=== PATIENT | male | born 1995 | race African-American/Black ===

== ENCOUNTER 2017-04-09 19:23 | Inpatient (IN) | payer OTHER ==
[~2017-04-09] VITALS: Ht 190.5 cm; Wt 77.1 kg
--- NOTE | 2017-04-09 19:50 | NUR ---
PT A/OX4 BREATHING EFFORTLESSLY ON ROOM AIR, PT STATES HE WAS AT [facility] [place] TODAY [facility] DIAGNOSED HIM WITH LEUKOPENIA, AND HEMOPTYSIS, PT STATES HE HAS BEEN COUGHING FOR 3 WEEKS AND SINCE THIS MORNING PT STATES HE HAS BEEN COUGHING UP BLOOD, PT ON MONITOR, IN JARODWMD Naz MADE AWARE WILL CONTINUE TO MONITOR.
[2017-04-09] MEDS ORDERED: IV NS 0.9% 1,000 ML BAG IV ONE (20:30)
[2017-04-09 20:51] LABS: CALCIUM, SERUM 8.6 mg/dL (8.5-10.1); CREATININE 0.9 mg/dL (0.6-1.3); POTASSIUM 3.5 mmol/L (3.5-5.1)
[2017-04-09 20:58] LABS: EOSINOPHILS % (AUTO) 0.2 % (0.0-6.0); HEMOGLOBIN 13.8 g/dL (13.5-17.5); LYMPHOCYTES # (AUTO) 0.4 /CMM (0.8-4.8); LYMPHOCYTES % (AUTO) 25.1 % (20.0-44.0); MEAN CORPUSCULAR HEMOGLOBIN 28 PG (26.0-33.0); MONOCYTES # (AUTO) 0.2 /CMM (0.1-1.30); NEUTROPHILS % (AUTO) 60.1 % (43.0-81.0)
[2017-04-09 20:59] LABS: HEMATOCRIT 43 % (39-51); MEAN CORPUSCULAR HGB CONC 32 g/dl (31.0-36.0); MEAN CORPUSCULAR VOLUME 87 fL (80-96); RDW COEFFICIENT OF VARIATION 13.4 (11.5-15.0); RED BLOOD CELL COUNT(AUTO) 4.95 MIL/uL (4.5-6.0)
[2017-04-09 21:00] LABS: BASOPHILS % (AUTO) 0.2 % (0.0-2.0); MONOCYTES % (AUTO) 14.7 % (2.0-12.0); PLATELET COUNT (AUTO) 64 /CMM (150-450)
[2017-04-09 21:01] LABS: WHITE BLOOD COUNT (AUTO) 1.6 K/uL (4.3-11.0)
[2017-04-09 21:39] LABS: BAND % (MANUAL) 8 % (0.0-5.0); LYMPHOCYTES % (MANUAL) 26 % (16-48); MONOCYTES % (MANUAL) 6 % (0-11.0); NEUTROPHILS % (MANUAL) 60 (42-76)
--- NOTE | 2017-04-09 22:37 | NUR ---
TELE 306-9
[2017-04-09 23:10] VITALS: BP 154/69
[2017-04-09 23:15] VITALS: BP 125/70
--- NOTE | 2017-04-09 23:15 | NUR ---
TELE/RN NOTES NEW ADMITTED PATIENT IS A 22 YO MALE, ALERT, ORIENTED X4, ABLE TO VERBALIZE NEEDS, CALM AND COOPERATIVE TO CARE. AMBULATES AND RESPIRATIONS EVEN AND UNLABORED, SKIN INTACT AND DRY. DENIES PAIN. VERBALIZED HAD BLOODY THICK SPUTUM, TELE READING NSR AT 73. ROOM ORIENTATION PROVIDED, BELONGINGS CHECKED AND INVENTORIED. IV ON RFA GAUGE 20,W/ NO S/S OF INFILTRATION. MD PEREZ REVIEWED MEDICATION ORDER. CALL LIGHTS WITHIN REACH, BED IN LOCK POSITION. PROVIDE FLUIDS. WILL CONTINUE TO MONITOR.
[2017-04-09] MEDS ORDERED: ONDANSETRON HCL/PF 4 MG/2 ML VIAL IVP PRN (23:30)
[2017-04-09] MEDS ORDERED: MAG HYDROX/AL HYDROX/SIMETH 30 ML UDC PO PRN (23:30)
[2017-04-09] MEDS: CEFTRIAXONE 2 G in IV D5W 100 ML IV SCH (23:30)
[2017-04-09] MEDS ORDERED: ACETAMINOPHEN 325 MG TABLET PO PRN (23:30)
[2017-04-09] MEDS ORDERED: Z GUARD REMEDY 2 OZ OINT TP PRN (23:30)
[2017-04-09] MEDS ORDERED: ZOLPIDEM TARTRATE 5 MG TABLET PO PRN (23:30)
[2017-04-09] MEDS ORDERED: VANCOMYCIN 1 GM in IV D5W 250 ML IV ONE (23:30)
[2017-04-09] MEDS ORDERED: HYDROCODONE/APAP 5/325MG 1 EACH TABLET PO PRN (23:30)
[2017-04-09] MEDS ORDERED: MAGNESIUM HYDROXIDE 30 ML UDC PO PRN (23:30)
[2017-04-09] MEDS: FLUCONAZOLE IN NS 100 MG in PREMIX 1 EA IV SCH ×2 (23:30)
[2017-04-10] MEDS: IV NS 0.9% 1,000 ML IV PRN ×2 (00:21→15:20)
[2017-04-10] MEDS ORDERED: VANCOMYCIN 1 GM VIAL ONE (00:44)
[2017-04-10] MEDS ORDERED: CEFTRIAXONE 1 G VIAL ONE (00:45)
[2017-04-10] MEDS ORDERED: FLUCONAZOLE IN NS 100 ML IV ONE (01:29)
[2017-04-10] MEDS ORDERED: CEFTRIAXONE 2 G VIAL ONE (01:30)
--- NOTE | 2017-04-10 01:51 | NUR ---
tele/rn notes received from cn iv atb available fluconazole in 200mg in 100ml only and charge nurse made aware. To administer only 50ml .
[2017-04-10 04:00] VITALS: BP 111/56
[2017-04-10] MEDS ORDERED: ACETAMINOPHEN 325 MG TABLET ONE (04:11)
[2017-04-10] MEDS ORDERED: FEE PK DOSING 1 MIN EA MC ONE (06:41)
--- NOTE | 2017-04-10 06:41 | NUR ---
306-1 TELE/RN CLOSING NOTES PATIENT IN BED, MONITORED FOR ANY DISCOMFORT, OBSERVE COUGHING OUT BLOOD, RESPIRATION EVEN AND UNLABORED, TEMPERATURE AT 99.2DEG F ADMINISTERED TYLENOL 650MG, IV ATB GIVEN PER MD ORDER, ABLE TO AMBULATE W/ SUPERVISION TO BATHROOM. SKIN INTACT. WILL ENDORSE TO AM RN FOR SHILPA.CALL LIGHTS WITHIN REACH.TELE READING AT SR IN THE 70'S.
[2017-04-10 07:54] LABS: ALBUMIN 2.7 g/dL (3.4-5.0); BILIRUBIN,TOTAL 0.1 mg/dL (0.2-1.0); CALCIUM, SERUM 8.5 mg/dL (8.5-10.1); CREATININE 0.9 mg/dL (0.6-1.3); MAGNESIUM 1.7 mg/dL (1.8-2.4); PHOSPHORUS 2.5 mg/dL (2.5-4.9); POTASSIUM 3.8 mmol/L (3.5-5.1)
[2017-04-10 07:55] LABS: BASOPHILS % (AUTO) 0.1 % (0.0-2.0); HEMATOCRIT 37 % (39-51); HEMOGLOBIN 12.4 g/dL (13.5-17.5); LYMPHOCYTES # (AUTO) 0.5 /CMM (0.8-4.8); LYMPHOCYTES % (AUTO) 32.4 % (20.0-44.0); MEAN CORPUSCULAR HEMOGLOBIN 30 PG (26.0-33.0); MEAN CORPUSCULAR HGB CONC 34 g/dl (31.0-36.0); MEAN CORPUSCULAR VOLUME 87 fL (80-96); MONOCYTES # (AUTO) 0.2 /CMM (0.1-1.30); MONOCYTES % (AUTO) 11.4 % (2.0-12.0); NEUTROPHILS # (AUTO) 0.8 /CMM (1.8-8.9); NEUTROPHILS % (AUTO) 56.1 % (43.0-81.0); PLATELET COUNT (AUTO) 76 /CMM (150-450); RDW COEFFICIENT OF VARIATION 14.3 (11.5-15.0); RED BLOOD CELL COUNT(AUTO) 4.18 MIL/uL (4.5-6.0)
[2017-04-10 08:00] VITALS: BP 108/65
[2017-04-10 08:01] LABS: WHITE BLOOD COUNT (AUTO) 1.5 K/uL (4.3-11.0)
[2017-04-10 08:27] LABS: THYROID STIMULATING HORMONE 1.124 uIU/mL (0.358-3.74)
[2017-04-10] MEDS: VANCOMYCIN 1.25 GM in IV D5W 500 ML IV SCH ×2 (08:40→17:23)
[2017-04-10 08:59] LABS: BAND % (MANUAL) 1 % (0.0-5.0); LYMPHOCYTES % (MANUAL) 29 % (16-48); MONOCYTES % (MANUAL) 13 % (0-11.0); NEUTROPHILS % (MANUAL) 57 (42-76)
[2017-04-10] MEDS: Magnesium 1GM/D5W 100ML PREMIX 100 ML IV SCH ×2 (10:40→11:47)
[2017-04-10 12:46] LABS: HEMATOCRIT 36 % (39-51); LYMPHOCYTES # (AUTO) 0.5 /CMM (0.8-4.8); LYMPHOCYTES % (AUTO) 32.3 % (20.0-44.0); MEAN CORPUSCULAR HEMOGLOBIN 29 PG (26.0-33.0); MEAN CORPUSCULAR HGB CONC 34 g/dl (31.0-36.0); MEAN CORPUSCULAR VOLUME 88 fL (80-96); MONOCYTES # (AUTO) 0.3 /CMM (0.1-1.30); MONOCYTES % (AUTO) 16.8 % (2.0-12.0); NEUTROPHILS # (AUTO) 0.8 /CMM (1.8-8.9); NEUTROPHILS % (AUTO) 49.9 % (43.0-81.0); PLATELET COUNT (AUTO) 73 /CMM (150-450); RDW COEFFICIENT OF VARIATION 14.4 (11.5-15.0); RED BLOOD CELL COUNT(AUTO) 4.09 MIL/uL (4.5-6.0)
[2017-04-10 12:52] LABS: WHITE BLOOD COUNT (AUTO) 1.6 K/uL (4.3-11.0)
[2017-04-10 13:17] LABS: LYMPHOCYTES % (MANUAL) 31 % (16-48); MONOCYTES % (MANUAL) 15 % (0-11.0); NEUTROPHILS % (MANUAL) 54 (42-76)
[2017-04-10] MEDS ORDERED: TUBERCULIN,PURIF.PROT.DERIV. 5 TU/0.1 ML VIAL ID ONE (16:30)
[2017-04-10 16:59] LABS: D-DIMER 0.23 mg/L(FEU (0.17-0.50); INR 0.93 (0.87-1.13); PROTHROMBIN TIME 9.7 SECS (9.5-12.7)
--- NOTE | 2017-04-10 17:22 | NUR ---
patient lives at home with his brother. He is ambulatory and independent with adl's. Plan is to return home when discharge. Addendum: 04/10/17 at 1722 by RACHEL BUNN RN Amended: Links added.
--- NOTE | 2017-04-10 17:45 | NUR ---
MST/RN - Notes Patient is alert and oriented throughout the shift, not in any form of distress, remain afebrile, denies pain, had an episode of epistaxis, still coughing out blood. Seen by Dr. Mustafa (Hem/Onc) for pancytopenia, thrombocytopenia, and hemoptysis. PPD administered on the LFA, documented accordingly. Neutropenic precautions observed at all times. Continue with IVF NS @ 125 ml/hr to maintain hydration. Await ID consult (Dr. Martinez). Will continue with current medical management.
--- NOTE | 2017-04-10 19:46 | NUR ---
MS RN OPENING NOTES RECEIVED PATIENT RESTING IN BED, A & O X 4. NO SOB, NO S/S OF BLEEDING, NO COUGH, RESP EVEN & NON LABORED AT THIS TIME. STATED HE IS FEELING BETTER THAN BEFORE NOW. CONTINENT, BRP. IV ACCESS TO RFA RUNNING WITH NS @ 125ML/HR, INTACT PATENT. BROTHER AT BED SIDE. BED IN LOW LOCKED POSITION. NEUTROPENIC PRECAUTIONS IN PLACE. CALL LIGHT WITHIN REACH. WILL OBSERVE CLOSELY.
[2017-04-10 20:00] VITALS: BP 108/52
--- NOTE | 2017-04-10 20:10 | NUR ---
PATIENT SEEN BY LOADER UNLOADER SERGEI SOARES OF DR. CUELLO VISITED THE PATIENT WITH NEW ORDERS. NOTED & CARRIED OUT.
[2017-04-10] MEDS: FLUCONAZOLE IN NS 100 MG in PREMIX 1 EA IV SCH ×2 (22:33)
[2017-04-10 23:30] VITALS: BP 111/60
[2017-04-10] MEDS: CEFTRIAXONE 2 G in IV D5W 100 ML IV SCH (23:39)
[2017-04-11] MEDS: VANCOMYCIN 1.25 GM in IV D5W 500 ML IV SCH ×3 (00:58→17:00)
--- NOTE | 2017-04-11 02:25 | NUR ---
MS RN NOTES PATIENT SLEEPING INTERMITTENTLY. CONTINENT & BRP. NO C/O PAIN, NO FEVER NOTED. PATIENT VERBALIZED FEELING BETTER AT THIS TIME. INFORMED TO NOTIFY THE NURSE IF ANY CHANGES NOTED. PT VERBALIZED UNDERSTANDING.
[2017-04-11] MEDS: IV NS 0.9% 1,000 ML IV PRN (05:50)
--- NOTE | 2017-04-11 06:43 | NUR ---
MS RN CLOSING NOTES PATIENT SLEPT INTERMITTENTLY. NO C/O PAIN, NO DISTRESS/DISCOMFORT NOTED. AFEBRILE, 97.5 F. ALL ANTIBIOTICS GIVEN ORDERED. IV ACCESS TO LFA, RUNNING WITH NS @ 125ML/HR, INTACT PATENT. NEUTROPENIA & SAFETY PRECAUTIONS IN PLACE. TOLERATES PO INTAKE WELL. OBSERVED CLOSELY FOR SAFETY & COMFORT. NO HEMOPTYSIS OR EPISTAXIS NOTED. ALL NEEDS MET. BED IN LOW LOCKED POSITION. CALL LIGHT WITHIN REACH. WILL ENDORSE TO AM RN FOR CONTINUITY OF CARE.
[2017-04-11 06:48] LABS: EOSINOPHILS % (AUTO) 0.2 % (0.0-6.0); HEMATOCRIT 39 % (39-51); LYMPHOCYTES % (AUTO) 50.9 % (20.0-44.0); MEAN CORPUSCULAR HEMOGLOBIN 29 PG (26.0-33.0); MEAN CORPUSCULAR HGB CONC 33 g/dl (31.0-36.0); MEAN CORPUSCULAR VOLUME 88 fL (80-96); MONOCYTES # (AUTO) 0.3 /CMM (0.1-1.30); MONOCYTES % (AUTO) 16.6 % (2.0-12.0); NEUTROPHILS # (AUTO) 0.6 /CMM (1.8-8.9); NEUTROPHILS % (AUTO) 31.3 % (43.0-81.0); PLATELET COUNT (AUTO) 87 /CMM (150-450); RDW COEFFICIENT OF VARIATION 14.6 (11.5-15.0); RED BLOOD CELL COUNT(AUTO) 4.49 MIL/uL (4.5-6.0)
[2017-04-11 07:11] LABS: CALCIUM, SERUM 8.8 mg/dL (8.5-10.1); CREATININE 0.8 mg/dL (0.6-1.3); MAGNESIUM 1.9 mg/dL (1.8-2.4); PHOSPHORUS 3.2 mg/dL (2.5-4.9); POTASSIUM 4.1 mmol/L (3.5-5.1)
[2017-04-11 08:00] VITALS: BP 112/52
[2017-04-11 08:10] LABS: C-REACTIVE PROTEIN, QUANT 1.4 mg/L (0.0-4.9)
--- NOTE | 2017-04-11 08:30 | NUR ---
MS RN RECEIVED ON BED, AWAKE,ALERT,ORIENTED X4,NOT IN ANY FORM OF DISTRESS, RESPIRATIONS EVEN AND UNLABORED,NO SOB NOTED, LUNGS ARE CLEAR,ABDOMEN SOFT, POSITIVE BOWEL SOUNDS, DENIES PAIN AT THIS TIME, WILL MONITOR PATIENT'S CONDITION.
--- NOTE | 2017-04-11 09:00 | NUR ---
MS TIM BREAKFAST SERVED,DUE MEDS GIVEN,TOLERATED WELL.
[2017-04-11 09:05] LABS: LYMPHOCYTES % (MANUAL) 53 % (16-48); MONOCYTES % (MANUAL) 22 % (0-11.0); NEUTROPHILS % (MANUAL) 25 (42-76)
--- NOTE | 2017-04-11 13:00 | NUR ---
ms rn was seen by tesfaye, was able to speak w/ mother.
[2017-04-11 16:00] VITALS: BP 106/49
--- NOTE | 2017-04-11 17:20 | NUR ---
ms rn was seen by georges gann/ order made and carried out.
--- NOTE | 2017-04-11 18:26 | NUR ---
ms rn on bed, no distress noted.
--- NOTE | 2017-04-11 19:30 | NUR ---
RN NOTES PATIENT IS IN BED, ALERT AND ORIENTED X4. VS STABLE. FAMILY PRESENT AT BEDSIDE. NO C/O PAIN AT THIS TIME. RESPIRATIONS EVEN AND UNLABORED. NO SOB NOTED. IV ACCESS ON RIGHT FA PATENT AND INTACT. NO REDNESS OR INFILTRATION NOTED. BED IN LOW POSITION. SIDE RAILS X2. CALL LIGHT WITHIN EASY REACH. WILL CONTINUE TO MONITOR.
[2017-04-11 20:00] VITALS: BP 115/59
[2017-04-11 20:14] VITALS: BP 115/59
[2017-04-11] MEDS: CEFTRIAXONE 2 G in IV D5W 100 ML IV SCH (22:50)
[2017-04-12] MEDS: FLUCONAZOLE IN NS 100 MG in PREMIX 1 EA IV SCH ×2 (00:40)
[2017-04-12] MEDS: VANCOMYCIN 1 GM in IV D5W 250 ML IV SCH ×3 (00:48→18:34)
--- NOTE | 2017-04-12 00:49 | NUR ---
RN NOTES VANCOMYCIN NOT ADMINISTERED. VANCO TROUGH 23.
--- NOTE | 2017-04-12 06:55 | NUR ---
RN CLOSING NOTES PATIENT IS SLEEPING IN BED. VS STABLE. RESPIRATIONS EVEN AND UNLABORED. NO SOB NOTED. IV ACCESS ON RIGHT FA PATENT AND INTACT. INFUSING NS AT 125 ML/HR. NO REDNESS OR INFILTRATION NOTED. ALL MEDICATIONS GIVEN PER MD ORDER. BED IN LOW POSITION. SIDE RAILS X2. CALL LIGHT WITHIN EASY REACH. WILL ENDORSE TO RN DAY SHIFT FOR CONTINUITY OF CARE.
--- NOTE | 2017-04-12 07:20 | NUR ---
MS RN OPENING NOTES RECEIVED PT FROM NIGHTSHIFT NURSE IN STABLE CONDITION. PT IS A/O X4. NO SOB OR SIGNS OF DISTRESS NOTED. BREATHING IS EVEN N UNLABORED. PT DENIES ANY PAIN AT THIS TIME. NO REPORTS OF FEVERS OR CHILLS. NO EPISODES OF HEMOPTYSIS NOTED. IV PRESENT ON RIGHT FOREARM WITH NS @ 125ML.HR. PT IS TOLERATING IN FUSION WELL. NO REDNESS OR SIGNS OF INFILTRATION NOTED. BED IN LOW LOCKED POSITION, SIDE RAILS UP X2, CALL LIGHT WITHIN REACH. PT'S MOTHER NOY AT BEDSIDE. WILL CONTINUE TO MONITOR.
[2017-04-12 07:39] LABS: BASOPHILS % (AUTO) 0.8 % (0.0-2.0); EOSINOPHILS % (AUTO) 0.8 % (0.0-6.0); HEMATOCRIT 36 % (39-51); HEMOGLOBIN 12.2 g/dL (13.5-17.5); LYMPHOCYTES # (AUTO) 1.2 /CMM (0.8-4.8); LYMPHOCYTES % (AUTO) 53.8 % (20.0-44.0); MEAN CORPUSCULAR HEMOGLOBIN 30 PG (26.0-33.0); MEAN CORPUSCULAR HGB CONC 34 g/dl (31.0-36.0); MEAN CORPUSCULAR VOLUME 87 fL (80-96); MONOCYTES # (AUTO) 0.4 /CMM (0.1-1.30); MONOCYTES % (AUTO) 16.8 % (2.0-12.0); NEUTROPHILS # (AUTO) 0.6 /CMM (1.8-8.9); NEUTROPHILS % (AUTO) 27.8 % (43.0-81.0); PLATELET COUNT (AUTO) 85 /CMM (150-450); RDW COEFFICIENT OF VARIATION 14.2 (11.5-15.0); RED BLOOD CELL COUNT(AUTO) 4.13 MIL/uL (4.5-6.0); WHITE BLOOD COUNT (AUTO) 2.1 K/uL (4.3-11.0)
[2017-04-12 08:00] VITALS: BP 108/54
[2017-04-12 08:01] LABS: CALCIUM, SERUM 8.6 mg/dL (8.5-10.1); CREATININE 0.7 mg/dL (0.6-1.3); MAGNESIUM 1.9 mg/dL (1.8-2.4); PHOSPHORUS 3.3 mg/dL (2.5-4.9); POTASSIUM 4.2 mmol/L (3.5-5.1)
[2017-04-12 09:39] LABS: LYMPHOCYTES % (MANUAL) 53 % (16-48); MONOCYTES % (MANUAL) 16 % (0-11.0); NEUTROPHILS % (MANUAL) 27 (42-76); REACTIVE LYMPHOCYTES 4 % (0-0)
--- NOTE | 2017-04-12 09:57 | NUR ---
MS RN NOTES LAB CALLED TO REPORT THAT THE PT'S ABSOLUTE NEUTROPHIL COUNT IS 0.4. DR. MENDOZA THE HVAC RESIDENTIAL SERVICE TECHNICIAN WAS NOTIFIED AND STATED THAT SHE WILL START THE PT. ON NEUPOGEN
[2017-04-12 10:12] LABS: *BASOS 1 % (Not Estab.); *COMMENTS Note: (.); *EOS 0 % (Not Estab.); *HCT 40.5 % (37.5-51.0); *HGB 12.9 g/dL (12.6-17.7); *LYMPHOCYTES 59 % (Not Estab.); *MCH 28.5 pg (26.6-33.0); *MCHC 31.9 g/dL (31.5-35.7); *MCV 89 fL (79-97); *MONOCYTES 15 % (Not Estab.); *MONOS, ABSOLUTE 0.3 x10E3/uL (0.1-0.9); *NEUTROPHILS 25 % (Not Estab.); *NRBC 1 % (0 - 0); *PLT 94 x10E3/uL (150-379); *RBC 4.53 x10E6/uL (4.14-5.80); *RDW 14.7 % (12.3-15.4)
[2017-04-12] MEDS: IV NS 0.9% 1,000 ML IV PRN ×2 (11:20→22:27)
[2017-04-12] MEDS: TBO-FILGRASTIM 480 MCG/0.8 ML ML SQ SCH (12:15)
[2017-04-12 13:09] LABS: CMV, IgG <0.60 U/mL (0.00-0.59); CMV, IgM <30.0 AU/mL (0.0-29.9)
[2017-04-12 14:20] LABS: *% CD 4 POS. LYMPH 52.1 % (30.8-58.5); *% CD 8 POS. LYMPH 26.5 % (12.0-35.5); *ABSOLUTE CD 4 HELPER 521 /uL (359-1519); *ABSOLUTE CD 8 SUPPRESSOR 265 /uL (109-897); *CD4/CD8 RATIO 1.97 (0.92-3.72)
[2017-04-12 16:00] VITALS: BP 110/43
--- NOTE | 2017-04-12 18:59 | NUR ---
MS RN CLOSING NOTES PT REMAINS IN STABLE CONDITION. ALL NEEDS WERE MET DURING SHIFT AND ORDERS CARRIED OUT ACCORDINGLY. ALL DUE MEDS GIVEN. PT EXPERIENCED NO FEVER OR CHILLS DURING SHIFT. SAFETY MEASURES REMAIN IN PLACE. MOTHER REMAINS ST BEDSIDE. WILL ENDORSE TO NIGHTSHIFT NURSE FOR SHILPA
--- NOTE | 2017-04-12 19:25 | NUR ---
RN INITIAL NOTES: RECEIVED REPORT FROM DAY RN, PT IN BED, AWAKE, A/O X4, ON RA RESPIRATION EVEN AND UNLABORED, DENIES ANY PAIN OR DISCOMFORT AT THIS TIME, MOTHER AT BED SIDE, WITH ORDERS TO OKAY TO STAY TONIGHT, PT HAS IV ACCESS PATENT AND FLUSHING WELL, INFUSING WITH NS AT 125ML/HR, ACCESS FREE FROM REDNESS OR INFILTRATION. PER REPORT MONA MAI TALKED TO PT AND FAMILY REGARDING PT'S CONDITION AND PLAN OF CARE, STILL AWAITING RESULT OF CD4 ND OTHER LABS. DR CUELLO WILL COME TONIGHT TO SEE THE PT. PT ON NEUTROPENIC PRECAUTION. SAFETY PRECAUTIONS FOR FALL INITIATED CALL LIGHT IN REACH, WILL CONTINUE TO MONITOR
--- NOTE | 2017-04-12 19:30 | NUR ---
RN NOTES: DR CUELLO CAME TO SEE THE PT, DISCUSS PLAN OF CARE, STATED HE WILL TAKE A LOOK AT THE MEDICATION OF THE PT.
[2017-04-12 20:00] VITALS: BP 121/66
[2017-04-12] MEDS ORDERED: FLUCONAZOLE (100 MG) 100 MG TABLET PO SCH (22:00)
[2017-04-12] MEDS: CEFTRIAXONE 2 G in IV D5W 100 ML IV SCH (22:28)
--- NOTE | 2017-04-13 06:43 | NUR ---
RN CLOSING NOTES: PT IN BED, AWAKE, REMAINS A/O X4, DENIES ANY PAIN OR DISCOMFORT AT THIS TIME, NO N/V NOTED, REMAINS AFEBRILE. IV ACCESS REMAINS PATENT AND FLUSHING WELL, INFUSING WITH NS AT 125 ML/HR. VS REMAINS STABLE, NEEDS ATTENDED. SAFETY PRECAUTIONS FOR FALL REMAINS ENGAGED, CALL LIGHT IN REACH, WILL ENDORSE TO DAY RN FOR SHILPA.
--- NOTE | 2017-04-13 07:30 | NUR ---
MS RN NOTES RECEIVED PATIENT IN BED, SLEEPING, AROUSED EASILY. ON ROOM AIR, TOLERATING WELL. IVF NS INFUSING AT 125ML/HR, TOLERATING WELL, NO SOB. CALL LIGHT WITHIN REACH. PATIENTS MOTHER AT THE BEDSIDE. WILL CONT TO MONITOR.
[2017-04-13 08:00] VITALS: BP_SYST 113; BP_SYST 131; BP_DIAS 62
[2017-04-13 08:51] LABS: CALCIUM, SERUM 9.4 mg/dL (8.5-10.1); CREATININE 0.8 mg/dL (0.6-1.3); POTASSIUM 4.1 mmol/L (3.5-5.1)
[2017-04-13 08:52] LABS: EOSINOPHILS % (AUTO) 0.1 % (0.0-6.0); HEMATOCRIT 37 % (39-51); LYMPHOCYTES # (AUTO) 1.6 /CMM (0.8-4.8); LYMPHOCYTES % (AUTO) 6.5 % (20.0-44.0); MEAN CORPUSCULAR HEMOGLOBIN 29 PG (26.0-33.0); MEAN CORPUSCULAR HGB CONC 33 g/dl (31.0-36.0); MEAN CORPUSCULAR VOLUME 88 fL (80-96); MONOCYTES # (AUTO) 1.6 /CMM (0.1-1.30); MONOCYTES % (AUTO) 6.4 % (2.0-12.0); NEUTROPHILS # (AUTO) 21.8 /CMM (1.8-8.9); PLATELET COUNT (AUTO) 131 /CMM (150-450); RDW COEFFICIENT OF VARIATION 14.4 (11.5-15.0); RED BLOOD CELL COUNT(AUTO) 4.15 MIL/uL (4.5-6.0)
[2017-04-13] MEDS: IV NS 0.9% 1,000 ML IV PRN ×2 (09:45→17:50)
[2017-04-13 09:58] LABS: WHITE BLOOD COUNT (AUTO) 25.1 K/uL (4.3-11.0)
[2017-04-13 10:03] LABS: D-DIMER 0.23 mg/L(FEU (0.17-0.50); INR 0.93 (0.87-1.13); PROTHROMBIN TIME 9.7 SECS (9.5-12.7)
[2017-04-13] MEDS: TBO-FILGRASTIM 480 MCG/0.8 ML ML SQ SCH (11:00)
--- NOTE | 2017-04-13 11:57 | NUR ---
ELEVATED WBC 25.1 INFORMED SERGEI MARCUS ORDERED TO HOLD GRANIX DOSE TODAY 04/13/17
[2017-04-13 12:11] LABS: BAND % (MANUAL) 16 % (0.0-5.0); LYMPHOCYTES % (MANUAL) 11 % (16-48); MONOCYTES % (MANUAL) 5 % (0-11.0); NEUTROPHILS % (MANUAL) 66 (42-76); REACTIVE LYMPHOCYTES 2 % (0-0)
[2017-04-13 16:00] VITALS: BP_SYST 127; BP_SYST 137; BP_DIAS 72
--- NOTE | 2017-04-13 18:12 | NUR ---
MS RN CLOSING NOTES PATIENT SITTING UP IN BED, HAS GOOD APPETITE, CONSUMED 100% OF HIS MEAL. ON NEUTROPENIC PRECAUTION. IV IN RFA G22 PATENT AND INTACT, IV NS INFUSING AT 125ML/HR, TOLERATING WELL, NO SOB. AFEBRILE. SEROLOGY RESULT PENDING, CONT. HOSP. CALL LIGHT WITHIN REACH. WILL ENDORSE TO RETURNED GOODS INSPECTOR RN FOR CONTINUITY OF CARE.
[2017-04-13 20:00] VITALS: BP 113/51
[2017-04-14 07:25] LABS: BASOPHILS # (AUTO) 0.1 /CMM (0.0-0.2); BASOPHILS % (AUTO) 0.3 % (0.0-2.0); EOSINOPHILS % (AUTO) 0.2 % (0.0-6.0); HEMATOCRIT 31 % (39-51); HEMOGLOBIN 10.3 g/dL (13.5-17.5); LYMPHOCYTES # (AUTO) 2.6 /CMM (0.8-4.8); LYMPHOCYTES % (AUTO) 14.2 % (20.0-44.0); MEAN CORPUSCULAR HEMOGLOBIN 29 PG (26.0-33.0); MEAN CORPUSCULAR HGB CONC 33 g/dl (31.0-36.0); MEAN CORPUSCULAR VOLUME 88 fL (80-96); MONOCYTES # (AUTO) 0.5 /CMM (0.1-1.30); MONOCYTES % (AUTO) 2.8 % (2.0-12.0); NEUTROPHILS % (AUTO) 82.5 % (43.0-81.0); PLATELET COUNT (AUTO) 138 /CMM (150-450); RDW COEFFICIENT OF VARIATION 14.7 (11.5-15.0); RED BLOOD CELL COUNT(AUTO) 3.54 MIL/uL (4.5-6.0); WHITE BLOOD COUNT (AUTO) 18.2 K/uL (4.3-11.0)
[2017-04-14 07:43] LABS: CALCIUM, SERUM 8.7 mg/dL (8.5-10.1); CREATININE 0.7 mg/dL (0.6-1.3); MAGNESIUM 1.8 mg/dL (1.8-2.4); PHOSPHORUS 3.3 mg/dL (2.5-4.9); POTASSIUM 4.4 mmol/L (3.5-5.1)
[2017-04-14 08:00] VITALS: BP 116/64
--- NOTE | 2017-04-14 08:50 | NUR ---
MS RN RECEIVED PATIENT ON BED, AWAKE,ALERT,ORIENTED X4,NOT IN ANY FORM OF DISTRESS, RESPIRATIONS EVEN AND UNLABORED,NO SOB NOTED, LUNGS ARE CLEAR,ABDOMEN SOFT,POSITIVE BOWEL SOUNDS, DENIES PAIN AT THIS TIME, WILL MONITOR PATIENT'S CONDITION.
--- NOTE | 2017-04-14 09:00 | NUR ---
MS RN BREAKFAST SERVED, NO DUE MEDS AT THIS TIME ,ALL NEEDS ATTENDED.
--- NOTE | 2017-04-14 10:00 | NUR ---
MS RN WAS SEEN BY SERGEI Quiroz/ ORDERS MADE AND CARRIED OUT, PATIENT TO BE DISCHARGE TODAY.
[2017-04-14 11:26] LABS: BAND % (MANUAL) 5 % (0.0-5.0); LYMPHOCYTES % (MANUAL) 15 % (16-48); MONOCYTES % (MANUAL) 6 % (0-11.0); NEUTROPHILS % (MANUAL) 74 (42-76)
--- NOTE | 2017-04-14 11:30 | NUR ---
MS RN PATIENT WENT HOME ACCOMPANIED BY MOM, DISCHARGE INSTRUCTION GIVEN, TO HAVE A FOLLOW UP W/ PRIMARY ON FRIDAY, NO DISTRESS NOTED.
[2017-04-14 22:08] LABS: *MYCOPLASMA PNEUMONIAE IgG 515 U/mL (0-99); *MYCOPLASMA PNEUMONIAE IgM <770 U/mL (0-769)
[2017-04-15 18:09] LABS: *HIV-1 log10 RNA 6.992 (.)
== END 2017-04-14 11:45 | disposition home or self-care (01) | DRG 871 ==
LOC: ER 19:30 → TELE 22:42 → MED 04-10 12:19
PROVIDERS: ADMIT Nurse Practitioner Acute Care; ATTEND Nurse Practitioner Acute Care
DX: A41.9 Sepsis, unspecified organism (principal); J15.9 Unspecified bacterial pneumonia; N17.0 Acute kidney failure with tubular necrosis; D61.818 Other pancytopenia; J16.8 Pneumonia due to other specified infectious organisms; D69.6 Thrombocytopenia, unspecified; D70.9 Neutropenia, unspecified; I95.9 Hypotension, unspecified; E86.0 Dehydration
CPT/HCPCS: 36415; 71010-TC; 80048-TC; 80053-TC; 80061-TC; 80202-TC; 82728-TC; 82746; 82784; 83540-TC; 83605-TC; 83615-TC; 83735-TC; 84100-TC; 84443-TC; 85025-TC; 85045-TC; 85378-TC; 85385-TC; 85396; 85610-TC; 85652-TC; 85730-TC; 86140; 86360; 86580-TC; 86592; 86644; 86645; 86706; 86738; 86803; 87040-TC; 87081-TC; 87102-TC; 87340; 87400; 87536; 87899; 93307-TC; A4216; J0696; J1447; J1450; J3370; J3475; J7030; J7060; Z7610

== ENCOUNTER 2018-03-03 19:26 | Emergency (ER) | payer OTHER ==
[~2018-03-03] VITALS: Ht 190.5 cm; Wt 81.6 kg
[2018-03-03 19:54] VITALS: BP 139/85
--- NOTE | 2018-03-03 20:09 | NUR ---
RAPID STREP THROAT SAMPLE COLLECTED AND CALLED LAB FOR BI LEAD
== END 2018-03-03 20:55 | disposition home or self-care (01) ==
LOC: ER 19:29
DX: J02.9 Acute pharyngitis, unspecified (principal); H92.01 Otalgia, right ear; Z60.2 Problems related to living alone
CPT/HCPCS: 71045; 87880; 99285; A4606; Z7610; 86403-TC; 87070-TC